=== PATIENT | male | born 1975 | race Caucasian/White ===

== ENCOUNTER 2017-06-10 03:03 | Emergency (ER) | payer BC ==
[~2017-06-10] VITALS: Ht 167.6 cm; Wt 102.3 kg
[2017-06-10] MEDS ORDERED: IBUPROFEN 600 MG TABLET PO ONE (05:15)
[2017-06-10 06:04] VITALS: BP 160/117
== END 2017-06-10 06:16 | disposition home or self-care (01) ==
LOC: EMS 03:04
DX: M17.12 Unilateral primary osteoarthritis, left knee (principal)
CPT/HCPCS: 29530; 99284

== ENCOUNTER 2017-06-16 10:37 | Emergency (ER) | payer BC ==
[~2017-06-16] VITALS: Ht 167.6 cm; Wt 102.3 kg
[2017-06-16 13:15] VITALS: BP 177/108
== END 2017-06-16 13:38 | disposition home or self-care (01) ==
LOC: EMS 10:40
DX: M13.862 Other specified arthritis, left knee (principal); M79.89 Other specified soft tissue disorders
CPT/HCPCS: 29530; 99283